=== PATIENT | male | born 1945 | race Caucasian/White ===

== ENCOUNTER 2016-03-27 10:31 | Inpatient (IN) | payer OTHER, MEDICARE ==
[2016-03-27] MEDS ORDERED: METHYLPREDNISOLONE INJ 125 MG/2 ML SDV IV ONE (11:07)
[2016-03-27] MEDS ORDERED: IPRATROPIUM/ALBUTEROL 0.5-2.5 MG/3 ML AMPUL NEB ONE (11:07)
[2016-03-27] MEDS ORDERED: FUROSEMIDE INJ/PF 40 MG/4 ML SDV IV ONE (11:07)
[2016-03-27 11:35] LABS: ABSOLUTE BASOPHILS # (AUTO) 0.1 10^3/uL (0.0-0.2); ABSOLUTE LYMPHOCYTES (AUTO) 0.8 10^3/uL (0.5-4.7); ABSOLUTE MONOCYTES (AUTO) 0.8 10^3/uL (0.1-1.4); ABSOLUTE NEUT (AUTO) 10.4 10^3/uL (1.7-8.2); BASOPHILS % (AUTO) 0.7 % (0-2); EOSINOPHILS % (AUTO) 0.4 % (0-6); HEMATOCRIT 38.6 % (37.9-51.0); HEMOGLOBIN 12.8 g/dL (13.5-17.0); HGB HCT DIFFERENCE -0.2; MEAN CORPUSCULAR HEMOGLOBIN 30.5 pg (27.0-33.4); MEAN CORPUSCULAR HGB CONC 33.1 g/dL (32.0-36.0); MEAN CORPUSCULAR VOLUME 92 fl (80-97); MONOCYTES % (AUTO) 6.4 % (3-13); RED CELL DISTRIBUTION WIDTH 14.7 % (11.5-14.0); SEGMENTED NEUTROPHILS % (AUTO) 85.5 % (42-78); WHITE BLOOD COUNT 12.1 10^3/uL (4.0-10.5)
[2016-03-27 11:40] LABS: PARTIAL THROMBOPLASTIN TIME 25.1 SEC (23.5-35.8); PROTHROMBIN TIME 12.7 SEC (11.4-15.4)
[2016-03-27 11:43] LABS: D-DIMER 1.13 ug/mL (0.00-0.50)
[2016-03-27] MEDS ORDERED: DILTIAZEM HCL INJ 25 MG/5 ML VIAL IV ONE (11:51)
[2016-03-27 12:09] LABS: ALANINE AMINOTRANSFERASE 59 U/L (21-72); ALBUMIN 3.8 g/dL (3.5-5.0); ALKALINE PHOSPHATASE 69 U/L (38-126); ANION GAP 15 (5-19); ASPARTATE AMINO TRANSFERASE 44 U/L (17-59); BILIRUBIN,TOTAL 1.6 mg/dL (0.2-1.3); BLOOD UREA NITROGEN 14 mg/dL (7-20); CALCIUM 9.7 mg/dL (8.4-10.2); CARBON DIOXIDE 23 mmol/L (22-30); CHLORIDE 100 mmol/L (98-107); CREATINE KINASE 92 U/L (55-170); CREATININE RESULT 1.15 mg/dL (0.52-1.25); GLUCOSE 191 mg/dL (75-110); SODIUM 137.9 mmol/L (137-145); TOTAL PROTEIN 6.6 g/dL (6.3-8.2)
[2016-03-27 12:19] LABS: CREATINE KINASE MB 2.14 ng/mL (<4.55)
[2016-03-27 12:23] LABS: FREE T3 3.41 pg/mL (2.77-5.27)
[2016-03-27 12:32] LABS: MAGNESIUM 1.1 mg/dL (1.6-2.3); TROPONIN I 0.143 ng/mL
[2016-03-27 12:37] LABS: THYROID STIMULATING HORMONE 0.78 uIU/mL (0.47-4.68)
[2016-03-27] MEDS ORDERED: NITROGLYCERIN 2% OINTMENT 1 GM PACKET TP ONE (12:38)
[2016-03-27] MEDS ORDERED: ASPIRIN 325 MG TABLET PO ONE (12:38)
[2016-03-27] MEDS ORDERED: MAGNESIUM SULFATE/D5W 100 ML IV SCH (12:45)
[2016-03-27] MEDS ORDERED: DILTIAZEM HCL/D5W 125 MG/125 ML RTUINJ IV ONE (12:52)
[2016-03-27] MEDS: DILTIAZEM HCL/D5W 125 ML IV PRN ×2 (13:00→23:56)
--- NOTE | 2016-03-27 13:00 | EKG REPORT ---
SEVERITY:- ABNORMAL ECG - A-FLUTTER W/ PREDOM 2:1 AV BLOCK, A-RATE 294 VENTRICULAR PREMATURE COMPLEX NONSPECIFIC T ABNORMALITIES, LATERAL LEADS BORDERLINE PROLONGED QT INTERVAL : Confirmed by: Layton Bird MD 27-Mar-2016 12:58:55
[2016-03-27 14:26] LABS: ARTERIAL BLOOD BASE EXCESS -3.4 mmol/L; ARTERIAL BLOOD O2 SATURATION 98.9 % (94-98)
--- NOTE | 2016-03-27 14:51 | ER Document Report ---
ED Respiratory Problem - General Chief Complaint: Breathing Difficulty Stated Complaint: DIFFICULTY BREATHING Notes: This is a 71-year-old male with history of sleep apnea who presents with concerns of shortness of breath worsening over the past week. He states he started with cold symptoms, congestion and a mild cough. He's had a decreased exertional tolerance over the past couple of days. No chest pain. He's been short of breath. He presents via EMS on BiPAP and was notably hypoxic upon medic arrival. - Related Data Home Medications: Current Home Medications Albuterol Sulfate [Proair Respiclick] 2 puff IH Q6HP PRN 03/27/16 [History] Aspirin [Aspirin 81 mg Chewable Tablet] 81 mg PO DAILY 03/27/16 [History] Budesonide/Formoterol Fumarate [Symbicort HFA 160-4.5 mcg Inhaler 6 gm] 2 puff IH Q12 03/27/16 [History] Cholecalciferol (Vitamin D3) [Vitamin D3 1000 Unit Tablet] 1,000 unit PO DAILY 03/27/16 [History] Cinnamon Bark [Cinnamon Bark 500 mg Capsule] 1,000 mg PO DAILY 03/27/16 [History ] Cyanocobalamin (Vitamin B-12) [Vitamin B-12 1000 mcg Tablet] 1,000 mcg PO DAILY 03/27/16 [History] Ferrous Sulfate 324 mg PO DAILY 03/27/16 [History] Gabapentin [Neurontin] 1 dose PO ASDIR PRN 03/27/16 [History] Lisinopril [Zestril] 40 mg PO DAILY 03/27/16 [History] Metformin HCl [Glucophage] 850 mg PO TID 03/27/16 [History] Kamrar-3 Fatty Acids/Fish Oil [Fish Oil 1,000 mg Capsule] 2,000 mg PO Q12 [History] Past Medical History - Social History Smoking Status: Former Smoker Frequency of alcohol use: Rare Drug Abuse: None Lives with: Spouse/Significant other - Has been to his current spouse for one year Family History: Reviewed & Not Pertinent Review of Systems - Review of Systems Constitutional: denies: Fever EENT: Nose congestion, Nose discharge Cardiovascular: denies: Chest pain, Palpitations, Syncope Respiratory: Short of breath Gastrointestinal: denies: Abdominal pain, Vomiting Musculoskeletal: Leg swelling Skin: denies: Rash Hematologic/Lymphatic: denies: Blood clots Neurological/Psychological: denies: Numbness, Tingling Physical Exam - Vital signs Vitals: Resp Pulse Ox 23 H 97 03/27/16 11:40 03/27/16 11:40 - General General appearance: Alert In distress: Mild - HEENT Head: Normocephalic Pupils: PERRL Nasal: Normal Mucous membranes: Normal Pharynx: Normal Neck: Normal - Respiratory Respiratory status: Respiratory distress, Tachypnea Breath sounds: Decreased air movement Chest palpation: Normal - Cardiovascular Rhythm: Irregularly irregular, Tachycardia - Abdominal Inspection: Obese Distension: Distended, Other - Ventral hernia - Back Back: Normal - Extremities General upper extremity: Normal inspection General lower extremity: Other - Trace pedal edema - Neurological Neuro grossly intact: Yes Orientation: AAOx4 Motor strength normal: LUE, RUE, LLE, RLE - Psychological Associated symptoms: Normal affect - Skin Skin Temperature: Warm Skin Moisture: Dry Skin Color: Normal Course - Re-evaluation Re-evalutation: 03/27/16 14:[address] Muñoz, Dr. Molina and Dr. Meraz for admission to [facility]. 03/27/16 17:32 Patient presented with new onset of A. fib/flutter not rate controlled with tachycardia to about 150. He had evidence of mild failure on exam with hypoxia and trace edema in the lower extremities. Chest x-ray consistent with mild CHF. BNP elevated to about 1800. Small troponin leak likely due to the tachycardia and strain. Patient was rate controlled with Cardizem. CTA was negative for pulmonary embolism as a source of his new A. fib/flutter. Thyroid studies are normal. Magnesium was notably very low and is being repleted. 03/27/16 17:34 Patient initially was on BiPAP but due to therapeutic interventions was able to be maintained safely on nasal cannula - Vital Signs Vital signs: Temp Pulse Resp BP Pulse Ox 23 H 97 03/27/16 11:40 03/27/16 11:40 - Laboratory Result Diagrams: 03/27/16 11:05 03/27/16 11:05 Laboratory results interpreted by me: 03/27/16 03/27/16 03/27/16 11:05 11:05 11:05 WBC 12.1 H RBC 4.20 L Hgb 12.8 L RDW 14.7 H Seg Neutrophils % 85.5 H Lymphocytes % 7.0 L Absolute Neutrophils 10.4 H D-Dimer 1.13 H ABG pO2 ABG Total CO2 ABG O2 Saturation Glucose 191 H Magnesium 1.1 L* Total Bilirubin 1.6 H NT-Pro-B Natriuret Pep 03/27/16 03/27/16 11:05 13:18 WBC RBC Hgb RDW Seg Neutrophils % Lymphocytes % Absolute Neutrophils D-Dimer ABG pO2 147.9 H ABG Total CO2 22.0 L ABG O2 Saturation 98.9 H Glucose Magnesium Total Bilirubin NT-Pro-B Natriuret Pep 1870 H - Diagnostic Test Radiology reviewed: Image reviewed, Reports reviewed - mild CHF - EKG Interpretation by Me Rate: Tachycardia Rhythm: A.Flutter - 150 Critical Care Note - Critical Care Note Total time excluding time spent on procedures (mins): 45 Discharge - Discharge Clinical Impression: Atrial fibrillation with rapid ventricular response Congestive heart failure (CHF) Qualifiers: Congestive heart failure type: unspecified congestive heart failure type Congestive heart failure chronicity: unspecified congestive heart failure chronicity Qualified Code(s): I50.9 - Heart failure, unspecified Condition: Stable Disposition: ADMITTED INPATIENT Admitting Provider: Hospitalist - busteed Unit Admitted: [facility]
[2016-03-27] MEDS ORDERED: ACETAMINOPHEN 325 MG TABLET PO PRN (15:23)
[2016-03-27] MEDS ORDERED: ONDANSETRON 4 MG TAB.RAPDIS PO PRN (15:23)
[2016-03-27] MEDS ORDERED: ONDANSETRON HCL INJ/PF 4 MG/2 ML SDV IV PRN (15:23)
[2016-03-27] MEDS ORDERED: ALBUTEROL SULFATE 0.083% NEB 2.5 MG/3 ML AMPUL NEB PRN (15:23)
[2016-03-27] MEDS ORDERED: DEXTROSE 40% GEL 15 GM TUBE PO PRN ×2 (15:29)
[2016-03-27] MEDS ORDERED: DEXTROSE 50%-WATER 25 GM/50 ML DISP.SYRIN IV PRN ×2 (15:29)
[2016-03-27] MEDS ORDERED: GLUCAGON,HUMAN RECOMB 1 MG INJ IM PRN (15:29)
--- NOTE | 2016-03-27 15:45 | PDOC H&P ---
History of Present Illness Admission Date/PCP: 03/27/16 15:20 Patient complains of: Shortness of breath for 2 days History of Present Illness: BILLIE SWEENEY is a 71 year old male with a history of COPD who 1 week ago developed a viral upper respiratory infection with a cough but nonproductive. The patient had taken Robitussin-DM with some improvement however 2 days ago developed acutely worsening shortness of breath. He began to get short of breath with minimal exertion and could walk about 20 feet before he had to stop and rest. The patient did not notice any palpitations or chest pain however when he presented to emergency room was found to be in a flutter with a rate of 150. The patient has been put on diltiazem drip and now has a normal heart rate. The patient denies any history of cardiac arrhythmias. He denies taking any decongestants or any other wiur-kfq-cnbomxf medications. He has normal thyroid functions. He does have obstructive sleep apnea but does wear his CPAP nightly. He has been actively trying to lose weight since the first of the year. He denies having any orthopnea or PND. Denies any lower extremity edema. He did have evidence for congestive heart failure when he presented but the time my exam he was much improved with a normal heart rate. Past Medical History Cardiac Medical History: Reports: Hypertension Pulmonary Medical History: Reports: Chronic Obstructive Pulmonary Disease (COPD) , Sleep Apnea EENT Medical History: Reports: None Neurological Medical History: Reports: Other - Restless leg syndrome Endocrine Medical History: Reports: Diabetes Mellitus Type 2 Renal/ Medical History: Reports: None Malignancy Medical History: Reports: Other - Prostate cancer GI Medical History: Reports: None Skin Medical History: Reports: None Psychiatric Medical History: Reports: Post Traumatic Stress Disorder Hematology: Reports: None Infectious Medical History: Reports: None Past Surgical History Past Surgical History: Reports: Other - Prostatectomy for prostate cancer. Status post penile implant. Social History Information Source: Patient Lives with: Spouse/Significant other Smoking Status: Former Smoker Frequency of Alcohol Use: Rare Hx Recreational Drug Use: No Drugs: None - Advance Directive Resuscitation Status: Full Code Family History Family History: Father in his 50s from coronary artery disease. Mother in her 70s from a stomach cancer. Parental Family History Reviewed: Yes Children Family History Reviewed: No Sibling(s) Family History Reviewed.: No Review of Systems Constitutional: PRESENT: weight loss - Intentional weight loss.. ABSENT: chills , fever(s), headache(s), weight gain Eyes: ABSENT: visual disturbances Ears: PRESENT: other - Chronic hearing loss Cardiovascular: PRESENT: dyspnea on exertion, orthropnea. ABSENT: chest pain, edema, palpitations Respiratory: PRESENT: cough, dyspnea. ABSENT: hemoptysis, sputum Gastrointestinal: ABSENT: abdominal pain, constipation, diarrhea, hematemesis, hematochezia, nausea, vomiting Genitourinary: ABSENT: dysuria, hematuria Musculoskeletal: ABSENT: joint swelling Integumentary: ABSENT: rash, wounds Neurological: ABSENT: abnormal gait, abnormal speech, confusion, dizziness, focal weakness, syncope Psychiatric: ABSENT: anxiety, depression, homidical ideation, suicidal ideation Endocrine: ABSENT: cold intolerance, heat intolerance, polydipsia, polyuria Hematologic/Lymphatic: ABSENT: easy bleeding, easy bruising Physical Exam Vital Signs: Temp Pulse Resp BP Pulse Ox 23 H 97 03/27/16 11:40 03/27/16 11:40 General appearance: PRESENT: no acute distress Head exam: PRESENT: atraumatic, normocephalic Eye exam: PRESENT: conjunctiva pink, EOMI, PERRLA. ABSENT: scleral icterus Ear exam: PRESENT: normal external ear exam Mouth exam: PRESENT: moist, tongue midline Neck exam: ABSENT: carotid bruit, JVD, lymphadenopathy, thyromegaly Respiratory exam: PRESENT: clear to auscultation vivek. ABSENT: rales, rhonchi, wheezes Cardiovascular exam: PRESENT: RRR. ABSENT: diastolic murmur, rubs, systolic murmur Pulses: PRESENT: normal dorsalis pedis pul Vascular exam: PRESENT: normal capillary refill GI/Abdominal exam: PRESENT: normal bowel sounds, soft. ABSENT: distended, guarding, mass, organolmegaly, rebound, tenderness Rectal exam: PRESENT: deferred Extremities exam: ABSENT: calf tenderness, clubbing, pedal edema Neurological exam: PRESENT: alert, awake, oriented to person, oriented to place , oriented to time, oriented to situation, CN II-XII grossly intact, other - Patient has a slight resting tremor.. ABSENT: motor sensory deficit Psychiatric exam: PRESENT: appropriate affect Skin exam: PRESENT: dry, intact, warm. ABSENT: cyanosis, rash Results Impressions: Chest X-Ray 03/27/16 10:53 IMPRESSION: 1. Mild cardiomegaly. 2. Minimal increased interstitial densities in the bases which may represent chronic interstitial change. Minimal interstitial edema cannot be excluded. Abdomen/Pelvis CTA 03/27/16 12:40 IMPRESSION: 1. 4.2 cm infrarenal abdominal aortic aneurysm. No evidence of rupture. 2. Fatty liver. 3. Colonic diverticulosis without evidence of diverticulitis. Chest/Abdomen CTA 03/27/16 12:40 IMPRESSION: 1. No evidence of pulmonary embolus or dissection. 2. Coronary artery calcifications most prominently involving the LAD. 3. Mild COPD, mild chronic appearing interstitial changes and mild dependent atelectasis or scarring. 4. Minimal effusions. Assessment & Plan - Diagnosis (1) Atrial flutter Is this a current diagnosis for this admission?: YesPlan: The patient has had new onset atrial flutter. The patient has been started on diltiazem and is rate controlled. Patient has had symptoms for 2 days and has a positive troponin. The positive troponins most likely secondary to the tachycardia. We will check serial cardiac enzymes. We will go ahead and anticoagulate with Lovenox. Patient denies taking any medications for his recent cold such as decongestants. He had normal thyroid functions drawn in the emergency room. He has never had any cardiac workup prior to this. Will consult cardiology in light of the positive troponin. (2) Troponin level elevated Is this a current diagnosis for this admission?: YesPlan: Most likely secondary to the tachycardia. Will treat with aspirin, Lovenox. Cardiology has been consulted. (3) Ventral hernia Is this a current diagnosis for this admission?: YesPlan: Asymptomatic (4) Hearing loss Is this a current diagnosis for this admission?: Yes (5) Hypertension Is this a current diagnosis for this admission?: YesPlan: Patient has been on lisinopril as an outpatient. We'll continue with diltiazem and lisinopril. (6) Prostate cancer Is this a current diagnosis for this admission?: YesPlan: Patient has a history of prostatectomy and is asymptomatic at this time. (7) COPD (chronic obstructive pulmonary disease) Is this a current diagnosis for this admission?: YesPlan: Patient shortness breath most likely was related to his atrial flutter. We'll give nebulizers as needed. (8) Posttraumatic stress disorder Is this a current diagnosis for this admission?: YesPlan: Continue with the Celexa. (9) Obstructive sleep apnea Is this a current diagnosis for this admission?: YesPlan: Continue with CPAP. (10) Diabetes mellitus Is this a current diagnosis for this admission?: YesPlan: We'll hold the metformin as an inpatient and cover with sliding scale insulin. (11) Congestive heart failure (CHF) Qualifiers: Congestive heart failure type: unspecified congestive heart failure type Congestive heart failure chronicity: unspecified congestive heart failure chronicity Qualified Code(s): I50.9 - Heart failure, unspecified Is this a current diagnosis for this admission?: YesPlan: Patient has no previous history of congestive heart failure. This most likely was related to his heart rate. At The time of my exam he had no rails as his heart rate has been controlled. - Time Time Spent: 50 to 70 Minutes - Inpatient Certification Medical Necessity: Risk of Complication if Not Cared For in Hospital - Plan Summary Plan Summary: We'll admit as a full admission as I anticipate this will require greater than 2 midnight hospital stay.
[2016-03-27 18:09] LABS: CREATINE KINASE MB 2.21 ng/mL (<4.55)
[2016-03-27 18:38] LABS: TROPONIN I 0.118 ng/mL
--- NOTE | 2016-03-27 20:55 | EKG REPORT ---
SEVERITY:- ABNORMAL ECG - A-FLUTTER FIB W/ PREDOM 3:1 AV BLOCK, A-RATE 294 NONSPECIFIC T ABNORMALITIES, LATERAL LEADS : Confirmed by: Layton Bird MD 27-Mar-2016 20:55:02
[2016-03-27] MEDS: ENOXAPARIN SODIUM INJ 120 MG/0.8 ML DISP.SYRIN SUBCUT SCH (23:01)
[2016-03-27] MEDS: INSULIN REG, HUMAN 100 UNIT/ML 3 ML VIAL (PYX) SUBCUT PRN (23:01)
[2016-03-27] MEDS: FAMOTIDINE 20 MG TABLET PO SCH (23:01)
[2016-03-28 00:14] LABS: CREATINE KINASE MB 2.18 ng/mL (<4.55); TROPONIN I 0.079 ng/mL
[2016-03-28 06:29] LABS: HEMATOCRIT 36.3 % (37.9-51.0); HEMOGLOBIN 11.5 g/dL (13.5-17.0); HGB HCT DIFFERENCE -1.8; MEAN CORPUSCULAR HEMOGLOBIN 29.4 pg (27.0-33.4); MEAN CORPUSCULAR HGB CONC 31.8 g/dL (32.0-36.0); MEAN CORPUSCULAR VOLUME 93 fl (80-97); RED BLOOD COUNT 3.92 10^6/uL (4.35-5.55); RED CELL DISTRIBUTION WIDTH 14.9 % (11.5-14.0)
[2016-03-28 06:43] LABS: ANION GAP 14 (5-19); BLOOD UREA NITROGEN 25 mg/dL (7-20); CALCIUM 9.7 mg/dL (8.4-10.2); CARBON DIOXIDE 21 mmol/L (22-30); CHLORIDE 102 mmol/L (98-107); CREATINE KINASE 102 U/L (55-170); CREATININE RESULT 1.29 mg/dL (0.52-1.25); GLUCOSE 195 mg/dL (75-110); MAGNESIUM 1.7 mg/dL (1.6-2.3)
[2016-03-28 06:53] LABS: CREATINE KINASE MB 2.08 ng/mL (<4.55); TROPONIN I 0.059 ng/mL
[2016-03-28] MEDS: INSULIN REG, HUMAN 100 UNIT/ML 3 ML VIAL (PYX) SUBCUT PRN ×2 (08:38→11:50)
[2016-03-28] MEDS: FAMOTIDINE 20 MG TABLET PO SCH (09:02)
[2016-03-28] MEDS: ENOXAPARIN SODIUM INJ 120 MG/0.8 ML DISP.SYRIN SUBCUT SCH (09:02)
[2016-03-28 09:16] LABS: APPEARANCE,URINE SLIGHTLY-CLOUDY; BILIRUBIN,URINE NEGATIVE (NEGATIVE); GLUCOSE, URINE 150 mg/dL (NEGATIVE); KETONES,URINE TRACE mg/dL (NEGATIVE); LEUKOCYTE ESTERASE,URINE SMALL (NEGATIVE); NITRITE,URINE NEGATIVE (NEGATIVE); PROTEIN,URINE 30 mg/dL (NEGATIVE); URINE SPECIFIC GRAVITY 1.054; UROBILINOGEN,URINE NEGATIVE mg/dL (<2.0)
[2016-03-28] MEDS ORDERED: DILTIAZEM HCL 240 MG CAPSULE.CR PO SCH (10:00)
--- NOTE | 2016-03-28 11:04 | EKG REPORT ---
SEVERITY:- ABNORMAL ECG - A-FLUTTER W/ PREDOM 4:1 AV BLOCK, A-RATE 283 NONSPECIFIC T ABNORMALITIES, ANT-LAT LEADS BORDERLINE PROLONGED QT INTERVAL CONSIDER OLD ANTEROSEPTAL OR : Confirmed by: Layton Bird MD 28-Mar-2016 11:02:56
[2016-03-28 12:28] VITALS: BP 109/71
--- NOTE | 2016-03-28 14:37 | PDOC DISCHARGE SUMMARY ---
General - Admit/Disc Date/PCP Admission Date/Primary Care Provider: 03/27/16 15:23 Discharge Date: 03/28/16 - Discharge Diagnosis (1) Atrial flutter Is this a current diagnosis for this admission?: YesSummary: Patient has had fibrillation and atrial flutter. Rate controlled with diltiazem. Sent home on Xarelto for anticoagulation (2) Troponin level elevated Is this a current diagnosis for this admission?: YesSummary: Secondary to atrial fibrillation and not secondary to acute coronary syndrome (3) Ventral hernia Is this a current diagnosis for this admission?: Yes (4) Hearing loss Is this a current diagnosis for this admission?: Yes (5) Hypertension Is this a current diagnosis for this admission?: Yes (6) Prostate cancer Is this a current diagnosis for this admission?: Yes (7) COPD (chronic obstructive pulmonary disease) Is this a current diagnosis for this admission?: Yes (8) Posttraumatic stress disorder Is this a current diagnosis for this admission?: Yes (9) Obstructive sleep apnea Is this a current diagnosis for this admission?: Yes (10) Diabetes mellitus Is this a current diagnosis for this admission?: Yes (11) Congestive heart failure (CHF) Is this a current diagnosis for this admission?: Yes - Additional Information Resuscitation Status: Full Code Discharge Diet: Diabetic Discharge Activity: Activity As Tolerated Home Medications: Albuterol Sulfate [Proair Respiclick] 2 puff IH Q6HP PRN 03/27/16 Aspirin [Aspirin 81 mg Chewable Tablet] 81 mg PO DAILY 03/27/16 Budesonide/Formoterol Fumarate [Symbicort HFA 160-4.5 mcg Inhaler 6 gm] 2 puff IH Q12 03/27/16 Cholecalciferol (Vitamin D3) [Vitamin D3 1000 Unit Tablet] 1,000 unit PO DAILY 03/27/16 Cinnamon Bark [Cinnamon Bark 500 mg Capsule] 1,000 mg PO DAILY 03/27/16 Cyanocobalamin (Vitamin B-12) [Vitamin B-12 1000 mcg Tablet] 1,000 mcg PO DAILY 03/27/16 Ferrous Sulfate 324 mg PO DAILY 03/27/16 Gabapentin [Neurontin] 1 dose PO ASDIR PRN 03/27/16 Lisinopril [Zestril] 40 mg PO DAILY 03/27/16 Metformin HCl [Glucophage] 850 mg PO TID 03/27/16 [place]-3 Fatty Acids/Fish Oil [Fish Oil 1,000 mg Capsule] 2,000 mg PO Q12 Diltiazem HCl [Cardizem Cd 240 mg Capsule.cr] 240 mg PO DAILY 30 Days 03/28/16 Rivaroxaban [Xarelto 10 mg Tablet] 20 mg PO WSUPPER #30 tablet 03/28/16 History of Present Illness History of Present Illness: BILLIE SWEENEY is a 71 year old male with a history of COPD who 1 week ago developed a viral upper respiratory infection with a cough but nonproductive. The patient had taken Robitussin-DM with some improvement however 2 days ago developed acutely worsening shortness of breath. He began to get short of breath with minimal exertion and could walk about 20 feet before he had to stop and rest. The patient did not notice any palpitations or chest pain however when he presented to emergency room was found to be in a flutter with a rate of 150. The patient has been put on diltiazem drip and now has a normal heart rate. The patient denies any history of cardiac arrhythmias. He denies taking any decongestants or any other hevt-ayq-qojeuhy medications. He has normal thyroid functions. He does have obstructive sleep apnea but does wear his CPAP nightly. He has been actively trying to lose weight since the first of the year. He denies having any orthopnea or PND. Denies any lower extremity edema. He did have evidence for congestive heart failure when he presented but the time my exam he was much improved with a normal heart rate. Hospital Course Hospital Course: 71-year-old male who presented with a 2 day history of shortness of breath and was found to be in atrial flutter/fibrillation. The patient was started on diltiazem IV with control his heart rate. The patient had quick resolution of his shortness of breath. He was noted have a troponin slightly positive when he presented and it was trended and trended down. It's felt that the elevated troponins were most likely secondary to his underlying atrial fibrillation and rapid ventricular rate. The patient was switched over to by mouth diltiazem and maintained rate control and also was started on Xarelto. The patient will follow-up with his primary care doctor in 1 week. Physical Exam Vital Signs: Temp Pulse Resp BP Pulse Ox 98.2 F 88 22 H 109/71 99 03/28/16 14:28 03/28/16 14:28 03/28/16 14:28 03/28/16 14:28 03/28/16 14:28 Intake & Output 03/27/16 03/28/16 03/29/16 06:59 06:59 06:59 Intake Total 520 511 Output Total 200 Balance 320 511 Weight 117.4 kg General appearance: PRESENT: no acute distress Eye exam: PRESENT: conjunctiva pink. ABSENT: scleral icterus Mouth exam: PRESENT: moist, tongue midline Neck exam: ABSENT: JVD Respiratory exam: PRESENT: clear to auscultation vivek. ABSENT: rales, rhonchi, wheezes Cardiovascular exam: PRESENT: RRR. ABSENT: diastolic murmur, rubs, systolic murmur GI/Abdominal exam: PRESENT: normal bowel sounds, soft. ABSENT: distended, guarding, mass, organolmegaly, rebound, tenderness Extremities exam: ABSENT: calf tenderness, clubbing, pedal edema Neurological exam: PRESENT: alert, awake, oriented to person, oriented to place , oriented to time, oriented to situation Skin exam: PRESENT: dry, intact, warm. ABSENT: cyanosis, rash Results Laboratory Results: 03/28/16 06:05 03/28/16 06:05 03/28/16 03/28/16 03/28/16 06:05 06:05 08:30 WBC 11.0 H RBC 3.92 L Hgb 11.5 L Hct 36.3 L MCV 93 MCH 29.4 MCHC 31.8 L RDW 14.9 H Plt Count 174 Sodium 137.0 Potassium 5.0 Chloride 102 Carbon Dioxide 21 L Anion Gap 14 BUN 25 H Creatinine 1.29 H Est GFR ( Amer) > 60 Est GFR (Non-Af Amer) 55 L Glucose 195 H Calcium 9.7 Magnesium 1.7 Urine Color YELLOW Urine Appearance SLIGHTLY-CLOUDY Urine pH 5.0 Ur Specific [place] 1.054 Urine Protein 30 H Urine Glucose (UA) 150 H Urine Ketones TRACE H Urine Blood NEGATIVE Urine Nitrite NEGATIVE Ur Leukocyte Esterase SMALL H Urine WBC (Auto) 10 Urine RBC (Auto) 1 03/27/16 03/27/16 03/27/16 17:15 17:15 23:25 Creatine Kinase 91 103 CK-MB (CK-2) 2.21 Troponin I 0.118 01/20/17 01/21/17 01/21/17 23:25 06:05 06:05 Creatine Kinase 102 CK-MB (CK-2) 2.18 2.08 Troponin I 0.079 0.059 Impressions: Chest X-Ray 03/27/16 10:53 IMPRESSION: 1. Mild cardiomegaly. 2. Minimal increased interstitial densities in the bases which may represent chronic interstitial change. Minimal interstitial edema cannot be excluded. Abdomen/Pelvis CTA 03/27/16 12:40 IMPRESSION: 1. 4.2 cm infrarenal abdominal aortic aneurysm. No evidence of rupture. 2. Fatty liver. 3. Colonic diverticulosis without evidence of diverticulitis. Chest/Abdomen CTA 03/27/16 12:40 IMPRESSION: 1. No evidence of pulmonary embolus or dissection. 2. Coronary artery calcifications most prominently involving the LAD. 3. Mild COPD, mild chronic appearing interstitial changes and mild dependent atelectasis or scarring. 4. Minimal effusions. Qualifiers PATEINT BEING DISCHARGED WITH ANY OF THE FOLLOWING DIAGNOSIS?: Heart Failure HF Pt being discharged on ACEI for LVEF less than 40%?: Yes HF Pt being discharged on ARBS for LVEF less than 40%?: No Reason(s) for not prescribing ARBS:: Drug intolerance HF Pt with Afib discharged with Warfarin?: Yes HF Pt discharged on evidence-based Beta Trina?: No Reason(s) for not prescribing evidence-based Beta Trina:: Procedure Contraindicated Plan Discharge Plan: Will follow up with primary care doctor in 1 week. Time Spent: Less than 30 Minutes
[2016-03-28] MEDS ORDERED: RIVAROXABAN 10 MG TABLET PO SCH (17:00)
== END 2016-03-28 14:50 | disposition home or self-care (01) | DRG 310 ==
LOC: ER 10:31 → EH 15:20 → UNDOADMIN 15:20 → EH 15:23 → 3W 19:13
PROVIDERS: ADMIT Internal Medicine; ATTEND Internal Medicine
DX: I48.92 Unspecified atrial flutter (principal); I48.91 Unspecified atrial fibrillation; K43.9 Ventral hernia without obstruction or gangrene; I50.9 Heart failure, unspecified; J44.9 Chronic obstructive pulmonary disease, unspecified; E11.9 Type 2 diabetes mellitus without complications; I10 Essential (primary) hypertension; R00.0 Tachycardia, unspecified; G47.33 Obstructive sleep apnea (adult) (pediatric); F43.10 Post-traumatic stress disorder, unspecified; H91.90 Unspecified hearing loss, unspecified ear; G25.81 Restless legs syndrome; Z87.891 Personal history of nicotine dependence; Z79.82 Long term (current) use of aspirin; Z79.84 Long term (current) use of oral hypoglycemic drugs; Z79.51 Long term (current) use of inhaled steroids; Z90.79 Acquired absence of other genital organ(s); Z85.46 Personal history of malignant neoplasm of prostate
CPT/HCPCS: 36415; 71010; 71275; 74174; 80048; 80053; 81001; 82550; 82553; 82803; 82962; 83735; 83880; 84439; 84443; 84481; 84484; 85025; 85027; 85379; 85610; 85730; 87040; 93005; 93010; 94660; J1650; J1815; J1940; J2930; J3475; J3490; J7620

== ENCOUNTER 2019-01-21 07:53 | Observation (INO) | payer MEDICARE, OTHER ==
[2019-01-21 09:15] LABS: ABSOLUTE BASOPHILS # (AUTO) 0.1 10^3/uL (0.0-0.2); ABSOLUTE LYMPHOCYTES (AUTO) 0.9 10^3/uL (0.5-4.7); BASOPHILS % (AUTO) 0.6 % (0-2); EOSINOPHILS % (AUTO) 0.1 % (0-6); HEMATOCRIT 33.8 % (37.9-51.0); HEMOGLOBIN 11.3 g/dL (13.5-17.0); LYMPHOCYTES % (AUTO) 8.1 % (13-45); MEAN CORPUSCULAR HEMOGLOBIN 29.4 pg (27.0-33.4); MEAN CORPUSCULAR HGB CONC 33.3 g/dL (32.0-36.0); MEAN CORPUSCULAR VOLUME 88 fl (80-97); MONOCYTES % (AUTO) 9.4 % (3-13); PLATELET COUNT 151 10^3/uL (150-450); RED BLOOD COUNT 3.84 10^6/uL (4.35-5.55); RED CELL DISTRIBUTION WIDTH 14.3 % (11.5-14.0); SEGMENTED NEUTROPHILS % (AUTO) 81.8 % (42-78); TOTAL CELLS COUNTED % (AUTO) 100 %
--- NOTE | 2019-01-21 09:21 | RADIOLOGY REPORT (SQ) ---
EXAM DESCRIPTION: CHEST SINGLE VIEW COMPLETED DATE/TIME: 01/21/2019 8:55 am REASON FOR STUDY: shortness of breath COMPARISON: CT chest 03/27/2016 EXAM PARAMETERS: NUMBER OF VIEWS: One view. TECHNIQUE: Single frontal radiographic view of the chest acquired. RADIATION DOSE: NA LIMITATIONS: None. FINDINGS: LUNGS AND PLEURA: No opacities, masses or pneumothorax. No pleural effusion. MEDIASTINUM AND HILAR STRUCTURES: No masses. Contour normal. HEART AND VASCULAR STRUCTURES: Borderline cardiomegaly BONES: No acute findings. HARDWARE: None in the chest. OTHER: No other significant finding. IMPRESSION: NO ACUTE RADIOGRAPHIC FINDING IN THE CHEST. TECHNICAL DOCUMENTATION: JOB ID: [id number] [employer]- All Rights Reserved Reading location - IP/workstation name: [email or web address]
[2019-01-21 09:26] LABS: VENOUS BLOOD BASE EXCESS -6.2 mmol/L; VENOUS BLOOD HCO3 18.9 mmol/L (20-32); VENOUS BLOOD PCO2 35.6 mmHg (35-63); VENOUS BLOOD PH 7.34 (7.30-7.42)
--- NOTE | 2019-01-21 09:28 | RADIOLOGY REPORT (SQ) ---
EXAM DESCRIPTION: CT HEAD WITHOUT COMPLETED DATE/TIME: 01/21/2019 9:13 am REASON FOR STUDY: fall on blood thinners COMPARISON: None. TECHNIQUE: Axial images acquired through the brain without intravenous contrast. Images reviewed wi th bone, brain and subdural windows. Additional sagittal and coronal reconstructions were generated. Images stored on PACS. All CT scanners at this facility use dose modulation, iterative reconstruction, and/or weight based d osing when appropriate to reduce radiation dose to as low as reasonably achievable (ALARA). [facility]: Dose Right [facility]: CareDose [facility]: Dose Right [facility]: Teradose 4D [facility]: Smart [employer] RADIATION DOSE: CT Rad equipment meets quality standard of care and radiation dose reduction techniq ues were employed. CTDIvol: 53.2 mGy. DLP: 1017 mGy-cm. mGy. LIMITATIONS: Minimal motion artifact FINDINGS: VENTRICLES: Normal size and contour. CEREBRUM: No masses. No hemorrhage. No midline shift. No evidence for acute infarction. Normal gra y/white matter differentiation. No areas of low density in the white matter. CEREBELLUM: No masses. No hemorrhage. No alteration of density. No evidence for acute infarction. EXTRAAXIAL SPACES: No fluid collections. No masses. ORBITS AND GLOBE: No intra- or extraconal masses. Post bilateral cataract surgery CALVARIUM: No fracture. PARANASAL SINUSES: No fluid or mucosal thickening. SOFT TISSUES: No mass or hematoma. OTHER: No other significant finding. IMPRESSION: No acute findings EVIDENCE OF ACUTE STROKE: NO. COMMENT: Quality ID # [id number]: Final reports with documentation of one or more dose reduction techniques (e.g., Automated exposure control, adjustment of the mA and/or kV according to patient size, use of iterative reconstruction technique) TECHNICAL DOCUMENTATION: JOB ID: [id number] [employer]- All Rights Reserved Reading location - IP/workstation name: [email or web address]
--- NOTE | 2019-01-21 09:32 | RADIOLOGY REPORT (SQ) ---
EXAM DESCRIPTION: CT CERVICAL SPINE WITHOUT COMPLETED DATE/TIME: 01/21/2019 9:13 am REASON FOR STUDY: fall on blood thinners COMPARISON: None. TECHNIQUE: Axial images acquired through the cervical spine without intravenous contrast. Images re viewed with lung, soft tissue and bone windows. Reconstructed coronal and sagittal MPR images review ed. Images stored on PACS. All CT scanners at this facility use dose modulation, iterative reconstruction, and/or weight based d osing when appropriate to reduce radiation dose to as low as reasonably achievable (ALARA). [facility]: Dose Right [facility]: CareDose [facility]: Dose Right [facility]: Teradose 4D [facility]: Smart [employer] RADIATION DOSE: CT Rad equipment meets quality standard of care and radiation dose reduction techniq ues were employed. CTDIvol: 24.4 mGy. DLP: 538 mGy-cm. mGy. LIMITATIONS: None. FINDINGS: ALIGNMENT: Anatomic. MINERALIZATION: Normal. VERTEBRAL BODIES: No fractures or dislocation. DISCS: Craniocervical junction, C1-2, C2-3 are unremarkable. At C3-4, mild bilateral foraminal narrowing from facet hypertrophy is present. No central stenosis. At C4-5, broad diffuse posterior disc bulging is present without central stenosis. Mild bilateral fo raminal narrowing from facet hypertrophy. At C5-6 and C6-7, mild posterior disc bulging is present with moderate bilateral foraminal narrowing. C7-T1 is unremarkable. FACETS, LATERAL MASSES, POSTERIOR ELEMENTS: No fractures. No dislocation. No acute findings. HARDWARE: None in the spine. VISUALIZED RIBS: No fractures. LUNG APICES AND SOFT TISSUES: No significant or acute findings. OTHER: No other significant finding. IMPRESSION: No acute findings TECHNICAL DOCUMENTATION: JOB ID: [id number] Quality ID # [id number]: Final reports with documentation of one or more dose reduction techniques (e.g., Au tomated exposure control, adjustment of the mA and/or kV according to patient size, use of iterative reconstruction technique) 2010 [employer]- All Rights Reserved Reading location - IP/workstation name: [email or web address]
[2019-01-21 09:36] LABS: ALKALINE PHOSPHATASE 70 U/L (38-126); ANION GAP 11 (5-19); ASPARTATE AMINO TRANSFERASE 20 U/L (17-59); BILIRUBIN,DIRECT 0.2 mg/dL (0.0-0.4); BLOOD UREA NITROGEN 37 mg/dL (7-20); CALCIUM 9.3 mg/dL (8.4-10.2); CARBON DIOXIDE 19 mmol/L (22-30); CHLORIDE 103 mmol/L (98-107); CREATINE KINASE 156 U/L (55-170); GLUCOSE 154 mg/dL (75-110); POTASSIUM 5.5 mmol/L (3.6-5.0); TOTAL PROTEIN 7.1 g/dL (6.3-8.2)
[2019-01-21 09:39] LABS: INTERNATIONAL RATION (INR) 1.63; PARTIAL THROMBOPLASTIN TIME 34.3 SEC (23.5-35.8); PROTHROMBIN TIME 19.5 SEC (11.4-15.4)
[2019-01-21 09:46] LABS: CREATINE KINASE MB 1.16 ng/mL (<4.55); TROPONIN I 0.015 ng/mL
--- NOTE | 2019-01-21 09:47 | ER Document Report ---
ED General - General Chief Complaint: Weakness Stated Complaint: WEAKNESS Time Seen by Provider: 01/21/19 09:01 Primary Care Provider: XENIA,KATERYNA [Primary Care Provider] - Follow up as needed Notes: 73-year-old male presents with complaints of generalized weakness, increased dyspnea, decreased appetite since yesterday. Reports that patient has been having increased falls due to feeling "unsteady on his feet" since yesterday. Patient hit his head against the wall yesterday. Usually wears O2 on exertion however since yesterday has been wearing it consistently due to increased shortness of breath. Patient has a history of 5 stents and is on Eliquis/Plavix. Pt also wears CPAP at night. reports "fever of 99.2F." Patient denies chest pain, increased coughing, nausea/vomiting, abdominal pain. TRAVEL OUTSIDE OF THE [place] IN LAST 30 DAYS: No - Related Data Allergies/Adverse Reactions: No Known Allergies Allergy (Verified 01/21/19 08:04) Home Medications: eliquis. plavix Past Medical History - Social History Smoking Status: Former Smoker Chew tobacco use (# tins/day): No Frequency of alcohol use: None Drug Abuse: None Family History: Reviewed & Not Pertinent Patient has suicidal ideation: No Patient has homicidal ideation: No - Past Medical History Cardiac Medical History: Reports: Hx Hypertension Pulmonary Medical History: Reports: Hx COPD, Hx Sleep Apnea Endocrine Medical History: Reports: Hx Diabetes Mellitus Type 2 Psychiatric Medical History: Reports: Hx Post Traumatic Stress Disorder Past Surgical History: Reports: Other - Prostatectomy for prostate cancer. Status post penile implant. Review of Systems - Review of Systems Notes: Constitutional: Negative for fever. HENT: Negative for sore throat. Eyes: Negative for visual changes. Cardiovascular: Negative for chest pain. Respiratory: Positive for shortness of breath. Gastrointestinal: Negative for abdominal pain, vomiting or diarrhea. Genitourinary: Negative for dysuria. Musculoskeletal: Negative for back pain. Skin: Negative for rash. Neurological: Positive for generalized weakness and increased falls. Negative for headaches or numbness. 10 point ROS negative except as marked above and in HPI. Physical Exam - Vital signs Vitals: Temp Pulse Resp BP Pulse Ox 99.1 F 80 36 H 143/60 H 100 01/21/19 07:55 01/21/19 07:55 01/21/19 07:55 01/21/19 07:55 01/21/19 07:55 - Notes Notes: GENERAL: Well-appearing, well-nourished and in no acute distress. HEAD: Atraumatic, normocephalic. EYES: Extraocular movements intact, sclera anicteric, conjunctiva are normal. NECK: Normal range of motion, supple without lymphadenopathy or JVD. LUNGS: Breath sounds clear to auscultation bilaterally and equal. No wheezes rales or rhonchi. HEART: Regular rate and rhythm without murmurs, rubs or gallops. ABDOMEN: Soft, nontender, normoactive bowel sounds. No guarding, no rebound. No masses appreciated. EXTREMITIES: Normal range of motion, no pitting or edema. No clubbing or cyanosis. NEUROLOGICAL: Cranial nerves II through XII grossly intact. Normal speech. PSYCH: Normal mood, normal affect. SKIN: Warm, Dry, normal turgor, no rashes or lesions noted. Course - Re-evaluation Re-evalutation: 01/21/19 73 y/o male presents for generalized weakness, dyspnea, and increased falls since yesterday. Pt did hit head and is on anti-coagulation. CT head/c spine negative. CXR negative. Labwork shows mildly elevated potassium and mild acute on chronic kidney injury. EKG unremarkable. Pt was ambulated with pulse ox and went approximately 5 feet and became very labored. 01/21/19 11:[address] Tyler who states he will see pt and then decide what type of bed. - Vital Signs Vital signs: Temp Pulse Resp BP Pulse Ox 99.1 F 80 36 H 143/60 H 100 01/21/19 07:55 01/21/19 07:55 01/21/19 07:55 01/21/19 07:55 01/21/19 07:55 - Laboratory Result Diagrams: 01/21/19 09:05 01/21/19 09:05 Laboratory results interpreted by me: 01/21/19 01/21/19 01/21/19 09:05 09:05 09:05 WBC 11.0 H RBC 3.84 L Hgb 11.3 L Hct 33.8 L RDW 14.3 H Lymph % (Auto) 8.1 L Absolute Neuts (auto) 9.0 H Seg Neutrophils % 81.8 H PT 19.5 H VBG HCO3 Sodium 132.6 L Potassium 5.5 H Carbon Dioxide 19 L BUN 37 H Creatinine 2.50 H Est GFR ( Amer) 31 L Est GFR (MDRD) Non-Af 25 L Glucose 154 H Urine Blood Ur Leukocyte Esterase 01/21/19 01/21/19 09:12 09:48 WBC RBC Hgb Hct RDW Lymph % (Auto) Absolute Neuts (auto) Seg Neutrophils % PT VBG HCO3 18.9 L Sodium Potassium Carbon Dioxide BUN Creatinine Est GFR ( Amer) Est GFR (MDRD) Non-Af Glucose Urine Blood LARGE H Ur Leukocyte Esterase LARGE H Discharge - Discharge Clinical Impression: COPD exacerbation, Generalized weakness Condition: Stable Disposition: ADMITTED OBSERVATION Admitting Provider: [facility] Admitted: Medical Floor [facility] [[facility] - Follow up as needed
[2019-01-21 10:17] LABS: APPEARANCE,URINE CLOUDY; BILIRUBIN,URINE NEGATIVE (NEGATIVE); COLOR,URINE YELLOW; GLUCOSE, URINE NEGATIVE (NEGATIVE); KETONES,URINE NEGATIVE (NEGATIVE); LEUKOCYTE ESTERASE,URINE LARGE (NEGATIVE); NITRITE,URINE NEGATIVE (NEGATIVE); PROTEIN,URINE NEGATIVE (NEGATIVE); URINE SPECIFIC GRAVITY 1.015; UROBILINOGEN,URINE NEGATIVE mg/dL (<2.0)
[2019-01-21] MEDS ORDERED: CEFTRIAXONE INJ 1000 MG VIAL IV ONE (10:57)
[2019-01-21] MEDS ORDERED: IPRATROPIUM/ALBUTEROL 0.5-2.5 MG/3 ML AMPUL NEB ONE (11:13)
--- NOTE | 2019-01-21 11:47 | EKG REPORT ---
SEVERITY:- NORMAL ECG - SINUS RHYTHM : Confirmed by: Natasha Nix MD 21-Jan-2019 11:46:41
[2019-01-21] MEDS ORDERED: NORMAL SALINE 1000 ML 1,000 ML IV ONE (12:34)
[2019-01-21] MEDS ORDERED: NORMAL SALINE 1000 ML 1,000 ML IV PRN (12:34)
[2019-01-21] MEDS ORDERED: DEXTROSE 40% GEL 15 GM TUBE PO PRN ×2 (12:58)
[2019-01-21] MEDS ORDERED: GLUCAGON,HUMAN RECOMB 1 MG INJ IM PRN (12:58)
[2019-01-21] MEDS ORDERED: DEXTROSE 50%-WATER 25 GM/50 ML DISP.SYRIN IV PRN ×2 (12:58)
[2019-01-21] MEDS ORDERED: METHYLPREDNISOLONE INJ 40 MG/1 ML SDV IV ONE ×2 (13:00→16:00)
--- NOTE | 2019-01-21 13:06 | PDOC H&P ---
History of Present Illness Admission Date/PCP: [facility] Patient complains of: Fall, shortness of breath History of Present Illness: BILLIE SWEENEY is a 73 year old male with history of COPD [sometimes uses home oxygen on exertion], CAD status post stents [04/2017], chronic tremors, atrial fibrillation, who presented to the hospital with his for evaluation of shortness of breath and fall. Patient has been experiencing increased sputum production on cough since yesterday accompanied by mild increase from baseline shortness of breath. Today when ambulating, noted that he had to hold on to the wall occasionally. Patient admits to some disequilibrium but denies any lightheadedness, vertigo or presyncopal state. Patient has also noted that he has been getting progressively weaker in the legs. Denies any focal weaknesses or paresthesias, dysarthria, dysphagia, weakness in upper extremities, nausea or vomiting, or chest pain. Also denies any increased weight gain or swelling in the extremities. 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 States his legs felt weak and that is why he tipped over. Past Medical History Cardiac Medical History: Reports: Atrial Fibrillation, Coronary Artery Disease, Hypertension Pulmonary Medical History: Reports: Chronic Obstructive Pulmonary Disease (COPD), Sleep Apnea Endocrine Medical History: Reports: Diabetes Mellitus Type 2 Psychiatric Medical History: Reports: Post Traumatic Stress Disorder Past Surgical History Past Surgical History: Reports: Other - Prostatectomy for prostate cancer. Status post penile implant. Social History Smoking Status: Former Smoker Electronic Cigarette use?: No Frequency of Alcohol Use: None Hx Recreational Drug Use: No Drugs: None Hx Prescription Drug Abuse: No - Advance Directive Resuscitation Status: Full Code Family History Family History: Reviewed & Not Pertinent Parental Family History Reviewed: Yes Children Family History Reviewed: NA Sibling(s) Family History Reviewed.: NA Medication/Allergy Home Medications: Albuterol Sulfate [Proair Respiclick] 2 puff IH Q6HP PRN 03/27/16 Aspirin [Aspirin 81 mg Chewable Tablet] 81 mg PO DAILY 03/27/16 Budesonide/Formoterol Fumarate [Symbicort HFA 160-4.5 mcg Inhaler 6 gm] 2 puff IH Q12 03/27/16 Cholecalciferol (Vitamin D3) [Vitamin D3 1000 Unit Tablet] 1,000 unit PO DAILY 03/27/16 Cinnamon Bark [Cinnamon Bark 500 mg Capsule] 1,000 mg PO DAILY 03/27/16 Cyanocobalamin (Vitamin B-12) [Vitamin B-12 1000 mcg Tablet] 1,000 mcg PO DAILY 03/27/16 Ferrous Sulfate 324 mg PO DAILY 03/27/16 Gabapentin [Neurontin] 1 dose PO ASDIR PRN 03/27/16 Lisinopril [Zestril] 40 mg PO DAILY 03/27/16 Metformin HCl [Glucophage] 850 mg PO TID 03/27/16 [place]-3 Fatty Acids/Fish Oil [Fish Oil 1,000 mg Capsule] 2,000 mg PO Q12 03/27/16 Diltiazem HCl [Cardizem Cd 240 mg Capsule.cr] 240 mg PO DAILY 30 Days ca psule.cr 03/28/16 Rivaroxaban [Xarelto 10 mg Tablet] 20 mg PO WSUPPER #30 tablet 03/28/16 Allergies/Adverse Reactions: No Known Allergies Allergy (Verified 01/21/19 08:04) Review of Systems Constitutional: ABSENT: fever(s) Eyes: ABSENT: visual disturbances Ears: PRESENT: hearing changes - Chronic hearing impairment. No acute change Nose, Mouth, and Throat: ABSENT: headache(s), vertigo Cardiovascular: PRESENT: dyspnea on exertion. ABSENT: chest pain, edema Gastrointestinal: ABSENT: abdominal pain Genitourinary: ABSENT: difficulty urinating, dysuria, nocturia Neurological: ABSENT: focal weakness, syncope Psychiatric: ABSENT: anxiety Endocrine: ABSENT: polyuria Hematologic/Lymphatic: ABSENT: easy bleeding Allergic/Immunologic: ABSENT: seasonal rhinorrhea Physical Exam Vital Signs: Temp Pulse Resp BP Pulse Ox 99.1 F 80 36 H 143/60 H 100 01/21/19 07:55 01/21/19 07:55 01/21/19 07:55 01/21/19 07:55 01/21/19 07:55 Intake & Output 01/20/19 01/21/19 01/22/19 06:59 06:59 06:59 Weight 126.1 kg General appearance: PRESENT: no acute distress, cooperative, other - Tremulous Head exam: PRESENT: normocephalic Eye exam: PRESENT: EOMI. ABSENT: nystagmus Neck exam: ABSENT: JVD, tracheal deviation Respiratory exam: PRESENT: clear to auscultation vivek, symmetrical, tachypnea - Mildly, unlabored. ABSENT: decreased breath sounds, wheezes Cardiovascular exam: PRESENT: RRR, +S1, +S2. ABSENT: tachycardia GI/Abdominal exam: PRESENT: normal bowel sounds, soft. ABSENT: guarding, rebound, rigid, tenderness Neurological exam: PRESENT: alert, awake, oriented to person, oriented to place, oriented to time, oriented to situation, CN II-XII grossly intact, motor sensory deficit, other - Normal [id number] test in bilateral upper extremity Results Laboratory Results: 01/21/19 09:05 01/21/19 09:05 01/21/19 01/21/19 01/21/19 09:05 09:05 09:12 WBC 11.0 H RBC 3.84 L Hgb 11.3 L Hct 33.8 L MCV 88 MCH 29.4 MCHC 33.3 RDW 14.3 H Plt Count 151 Seg Neutrophils % 81.8 H VBG pH 7.34 VBG pCO2 35.6 VBG HCO3 18.9 L VBG Base Excess -6.2 Sodium 132.6 L Potassium 5.5 H Chloride 103 Carbon Dioxide 19 L Anion Gap 11 BUN 37 H Creatinine 2.50 H Est GFR ( Amer) 31 L Glucose 154 H Lactic Acid Calcium 9.3 Total Bilirubin 1.0 AST 20 Alkaline Phosphatase 70 Total Protein 7.1 Albumin 4.0 Urine Color Urine Appearance Urine pH Ur Specific [place] Urine Protein Urine Glucose (UA) Urine Ketones Urine Blood Urine Nitrite Ur Leukocyte Esterase Urine WBC (Auto) Urine RBC (Auto) 01/21/19 01/21/19 09:48 11:02 WBC RBC Hgb Hct MCV MCH MCHC RDW Plt Count Seg Neutrophils % VBG pH VBG pCO2 VBG HCO3 VBG Base Excess Sodium Potassium Chloride Carbon Dioxide Anion Gap BUN Creatinine Est GFR ( Amer) Glucose Lactic Acid 1.2 Calcium Total Bilirubin AST Alkaline Phosphatase Total Protein Albumin Urine Color YELLOW Urine Appearance CLOUDY Urine pH 5.0 Ur Specific [place] 1.015 Urine Protein NEGATIVE Urine Glucose (UA) NEGATIVE Urine Ketones NEGATIVE Urine Blood LARGE H Urine Nitrite NEGATIVE Ur Leukocyte Esterase LARGE H Urine WBC (Auto) 91 Urine RBC (Auto) 46 01/21/19 01/21/19 09:05 09:05 Creatine Kinase 156 CK-MB (CK-2) 1.16 Troponin I 0.015 Impressions: Cervical Spine CT 01/21/19 00:00 IMPRESSION: No acute findings Chest X-Ray 01/21/19 00:00 IMPRESSION: NO ACUTE RADIOGRAPHIC FINDING IN THE CHEST. Head CT 01/21/19 00:00 IMPRESSION: No acute findings EVIDENCE OF ACUTE STROKE: NO. Assessment and Plan - Diagnosis (1) Dyspnea Qualifiers: Dyspnea type: dyspnea on exertion Qualified Code(s): R06.09 - Other forms of dyspnea Is this a current diagnosis for this admission?: Yes Plan: Patient currently has clear breath sounds. However I auscultated his lungs a while after breathing treatment. At this time, I will opt to treat mild COPD exacerbation with standing nebs and only 1 dose of steroids. I do not think you need any more steroids given severity of his COPD exacerbation. I will also keep CAD as a differential though he is chest pain-free. Will trend troponins. EKG showing no ischemic changes. (2) Diabetes mellitus type 2 in obese Is this a current diagnosis for this admission?: Yes Plan: Continue home regimen of NovoLog and Lantus. Sliding scale, diabetic diet, Accu-Cheks (3) ERROL (acute kidney injury) Is this a current diagnosis for this admission?: Yes Plan: Baseline of 1.1 in 2017. Currently 2.5 I will check a response to IV fluids (4) COPD exacerbation Is this a current diagnosis for this admission?: Yes Plan: LABA/LAMA/ICS Rest of plan under problem #1 (5) Generalized weakness Is this a current diagnosis for this admission?: Yes Plan: Physical therapy/Occupational therapy (6) Obstructive sleep apnea Is this a current diagnosis for this admission?: Yes Plan: Nocturnal CPAP (7) Troponin level elevated Is this a current diagnosis for this admission?: Yes Plan: Trend out troponins. No EKG changes. (8) Asymptomatic bacteriuria Is this a current diagnosis for this admission?: Yes Plan: Denies urinary symptoms currently. Will not continue antibiotics. - Time Time Spent with patient: 35 or more minutes
[2019-01-21] MEDS: LEVALBUTEROL HCL NEB 1.25 MG/3 ML AMPUL NEB SCH ×2 (13:29→20:17)
[2019-01-21] MEDS: CLOPIDOGREL BISULFATE 75 MG TABLET PO SCH (15:17)
--- NOTE | 2019-01-21 15:30 | ADVANCED CARE ---
- Diagnosis (1) Dyspnea Diagnosis Current: Yes (3) ERROL (acute kidney injury) Diagnosis Current: Yes (4) COPD exacerbation Diagnosis Current: Yes Attendance: Patient, patient's and myself Resuscitation Status: Full Code Discussion: I discussed patient's medical conditions and management of COPD. Also discussed the usage of his home oxygen. During our conversation I discussed the potential direction COPD exacerbation could take and while he is currently just a mild exacerbation, there is still the potential with becoming more severe requiring advanced therapy with intubation or NIPPV. We discussed laid down plans regarding what to do if he should which this point. Patient and are agreeable to NIPPV or intubation if needed. Full treatment. I asked also if they have any advanced directive filled out and he said no but will consider. Care Planning Goals: Full code. NIPPV if needed. Full treatment. Document(s) Completed: None Time Spent: 16-20 mins
[2019-01-21] MEDS: INSULIN LISPRO 100 UNIT/ML 3 ML VIAL SUBCUT SCH ×3 (17:48→22:05)
[2019-01-21] MEDS ORDERED: INSULIN GLARGINE,HUM.REC.ANLOG 1,000 UNIT/10 ML VIAL (PYX) SUBCUT ONE (21:48)
[2019-01-21] MEDS: ATORVASTATIN CALCIUM 20 MG TABLET PO SCH (21:53)
[2019-01-21] MEDS: GABAPENTIN 300 MG CAPSULE PO SCH (21:53)
[2019-01-21] MEDS: APIXABAN 5 MG TABLET PO SCH (21:53)
[2019-01-21] MEDS: CITALOPRAM HYDROBROMIDE 20 MG TABLET PO SCH (21:53)
[2019-01-21] MEDS: INSULIN GLARGINE,HUM.REC.ANLOG 1,000 UNIT/10 ML VIAL SUBCUT SCH (22:02)
[2019-01-22 06:02] LABS: HEMATOCRIT 30.8 % (37.9-51.0); HEMOGLOBIN 10.4 g/dL (13.5-17.0); MEAN CORPUSCULAR HEMOGLOBIN 29.5 pg (27.0-33.4); MEAN CORPUSCULAR HGB CONC 33.6 g/dL (32.0-36.0); MEAN CORPUSCULAR VOLUME 88 fl (80-97); PLATELET COUNT 131 10^3/uL (150-450); RED BLOOD COUNT 3.51 10^6/uL (4.35-5.55); RED CELL DISTRIBUTION WIDTH 14.1 % (11.5-14.0); WHITE BLOOD COUNT 7.2 10^3/uL (4.0-10.5)
[2019-01-22 06:21] LABS: ANION GAP 15 (5-19); BLOOD UREA NITROGEN 44 mg/dL (7-20); CALCIUM 8.5 mg/dL (8.4-10.2); CARBON DIOXIDE 14 mmol/L (22-30); CHLORIDE 105 mmol/L (98-107); GLUCOSE 189 mg/dL (75-110); POTASSIUM 5.1 mmol/L (3.6-5.0)
[2019-01-22] MEDS: LEVALBUTEROL HCL NEB 1.25 MG/3 ML AMPUL NEB SCH ×3 (08:18→19:32)
[2019-01-22] MEDS: INSULIN LISPRO 100 UNIT/ML 3 ML VIAL SUBCUT SCH ×6 (08:53→21:37)
[2019-01-22] MEDS ORDERED: METOPROLOL SUCCINATE 50 MG TAB.SR.24H PO SCH (10:00)
[2019-01-22] MEDS: FLUTICASONE/UMECLIDIN/VILANTER 100-62.5-25 MCG/DOSE IH SCH (10:30)
[2019-01-22] MEDS: CLOPIDOGREL BISULFATE 75 MG TABLET PO SCH (10:31)
[2019-01-22] MEDS: FERROUS SULFATE 325 MG TABLET PO SCH (10:31)
[2019-01-22] MEDS: APIXABAN 5 MG TABLET PO SCH ×2 (10:31→21:31)
[2019-01-22] MEDS: METOPROLOL SUCCINATE 25 MG TAB.SR.24H PO SCH (10:31)
[2019-01-22] MEDS: FLUTICASONE NASAL SPRAY 50 MCG/SPRY 120 SPRAY/16 GM NAREB SCH (10:31)
[2019-01-22] MEDS: CHOLECALCIFEROL (D3) 1,000 UNIT (25 MCG) TABLET PO SCH (10:32)
[2019-01-22] MEDS: CYANOCOBALAMIN (VITAMIN B-12) 1,000 MCG TABLET PO SCH (10:32)
[2019-01-22] MEDS: HYDROCHLOROTHIAZIDE 25 MG TABLET PO SCH (10:32)
--- NOTE | 2019-01-22 15:49 | PDOC PROGRESS REPORT ---
Subjective Progress Note for:: 01/22/19 Subjective:: No adverse events overnight. No new complaints. He says overall he is feeling better. His breathing feels comfortable. He did a lot better with physical therapy today than I thought he was going to, walking 170 feet with a walker. Reason For Visit: ERROL,DYSPNEA Physical Exam Vital Signs: Temp Pulse Resp BP Pulse Ox 98.1 F 68 16 122/58 L 96 01/22/19 12:00 01/22/19 14:00 01/22/19 14:00 01/22/19 12:00 01/22/19 14:00 Intake & Output 01/21/19 01/22/19 01/23/19 06:59 06:59 06:59 Intake Total 2740 Output Total 1075 Balance 1665 Weight 126 kg General appearance: PRESENT: no acute distress, cooperative, disheveled, morbidly obese Respiratory exam: PRESENT: clear to auscultation vivek, symmetrical, unlabored. ABSENT: accessory muscle use, chest wall tenderness, crackles, prolonged expiratory phas, rhonchi, tachypnea, wheezes Cardiovascular exam: PRESENT: irregular rhythm Pulses: PRESENT: normal carotid pulses Vascular exam: PRESENT: normal capillary refill GI/Abdominal exam: PRESENT: normal bowel sounds, soft. ABSENT: distended, guarding, rebound, tenderness Extremities exam: ABSENT: clubbing, pedal edema Musculoskeletal exam: PRESENT: deformity, normal inspection Neurological exam: PRESENT: alert, awake, oriented to person, oriented to place, oriented to situation, other - Tremulous Psychiatric exam: PRESENT: appropriate affect, normal mood Skin exam: PRESENT: dry, warm Results Laboratory Results: 01/22/19 05:25 01/22/19 05:25 01/22/19 01/22/19 05:25 05:25 WBC 7.2 RBC 3.51 L Hgb 10.4 L Hct 30.8 L MCV 88 MCH 29.5 MCHC 33.6 RDW 14.1 H Plt Count 131 L Sodium 134.3 L Potassium 5.1 H Chloride 105 Carbon Dioxide 14 L Anion Gap 15 BUN 44 H Creatinine 2.32 H Est GFR ( Amer) 33 L Glucose 189 H Calcium 8.5 01/21/19 01/21/19 01/21/19 09:05 09:05 16:24 Creatine Kinase 156 CK-MB (CK-2) 1.16 Troponin I 0.015 0.013 Impressions: Cervical Spine CT 01/21/19 00:00 IMPRESSION: No acute findings Chest X-Ray 01/21/19 00:00 IMPRESSION: NO ACUTE RADIOGRAPHIC FINDING IN THE CHEST. Head CT 01/21/19 00:00 IMPRESSION: No acute findings EVIDENCE OF ACUTE STROKE: NO. Assessment and Plan - Diagnosis (1) Dyspnea Qualifiers: Dyspnea type: dyspnea on exertion Qualified Code(s): R06.09 - Other forms of dyspnea Is this a current diagnosis for this admission?: Yes Plan: Suspected to be due to his baseline level of weakness, his COPD, his general poor health, and his renal failure. His breathing feels better at rest. He was able to ambulate with a walker and standby assist for 170 feet today, which is better than I thought he was going to do. (2) ERROL (acute kidney injury) Is this a current diagnosis for this admission?: Yes Plan: Not sure what his baseline is, had a normal creatinine in 2017, so we are assuming that this is acute. He did have some response to IV fluids and so we will try to cautiously hydrate him and monitor the trend in his creatinine. (3) Diabetes mellitus type 2 in obese Is this a current diagnosis for this admission?: Yes Plan: Continue home regimen of NovoLog and Lantus. Sliding scale, diabetic diet, Accu-Cheks (4) Generalized weakness Is this a current diagnosis for this admission?: Yes Plan: Physical therapy felt he was safe to go home with home health. - Time Time Spent with patient: 15-24 minutes
[2019-01-22] MEDS: CITALOPRAM HYDROBROMIDE 20 MG TABLET PO SCH (21:30)
[2019-01-22] MEDS: ATORVASTATIN CALCIUM 20 MG TABLET PO SCH (21:31)
[2019-01-22] MEDS: GABAPENTIN 300 MG CAPSULE PO SCH (21:31)
[2019-01-22] MEDS: INSULIN GLARGINE,HUM.REC.ANLOG 1,000 UNIT/10 ML VIAL SUBCUT SCH (21:54)
[2019-01-23] MEDS: LEVALBUTEROL HCL NEB 1.25 MG/3 ML AMPUL NEB SCH ×3 (07:53→20:30)
[2019-01-23] MEDS: INSULIN LISPRO 100 UNIT/ML 3 ML VIAL SUBCUT SCH ×6 (08:57→21:36)
[2019-01-23] MEDS: FLUTICASONE/UMECLIDIN/VILANTER 100-62.5-25 MCG/DOSE IH SCH (10:43)
[2019-01-23] MEDS: FERROUS SULFATE 325 MG TABLET PO SCH (10:43)
[2019-01-23] MEDS: METOPROLOL SUCCINATE 25 MG TAB.SR.24H PO SCH (10:43)
[2019-01-23] MEDS: HYDROCHLOROTHIAZIDE 25 MG TABLET PO SCH (10:43)
[2019-01-23] MEDS: CYANOCOBALAMIN (VITAMIN B-12) 1,000 MCG TABLET PO SCH (10:43)
[2019-01-23] MEDS: FLUTICASONE NASAL SPRAY 50 MCG/SPRY 120 SPRAY/16 GM NAREB SCH (10:43)
[2019-01-23] MEDS: APIXABAN 5 MG TABLET PO SCH ×2 (10:44→21:32)
[2019-01-23] MEDS: CLOPIDOGREL BISULFATE 75 MG TABLET PO SCH (10:44)
[2019-01-23] MEDS: CHOLECALCIFEROL (D3) 1,000 UNIT (25 MCG) TABLET PO SCH (10:44)
[2019-01-23 10:58] LABS: ANION GAP 11 (5-19); BLOOD UREA NITROGEN 50 mg/dL (7-20); CALCIUM 9.3 mg/dL (8.4-10.2); CARBON DIOXIDE 22 mmol/L (22-30); CHLORIDE 103 mmol/L (98-107); GLUCOSE 166 mg/dL (75-110); POTASSIUM 5.6 mmol/L (3.6-5.0)
[2019-01-23] MEDS: CEPHALEXIN 500 MG CAPSULE PO SCH ×2 (15:33→21:36)
--- NOTE | 2019-01-23 15:56 | PDOC PROGRESS REPORT ---
Subjective Progress Note for:: 01/23/19 Subjective:: No adverse events overnight. No new complaints. Vital signs been stable. Eating and drinking without difficulty. No chest pain or shortness of breath. Got up and ambulated 170 feet with physical therapy yesterday. Reason For Visit: ERROL,DYSPNEA Physical Exam Vital Signs: Temp Pulse Resp BP Pulse Ox 98.5 F 82 16 124/60 95 01/23/19 11:10 01/23/19 13:35 01/23/19 13:35 01/23/19 11:10 01/23/19 13:35 Intake & Output 01/22/19 01/23/19 01/24/19 06:59 06:59 06:59 Intake Total 2740 980 360 Output Total 1075 Balance 1665 980 360 Weight 126 kg 126.3 kg General appearance: PRESENT: no acute distress, cooperative, disheveled, morbidly obese Respiratory exam: PRESENT: clear to auscultation vivek, symmetrical, unlabored. ABSENT: accessory muscle use, chest wall tenderness, crackles, prolonged expiratory phas, rhonchi, tachypnea, wheezes Cardiovascular exam: PRESENT: irregular rhythm Pulses: PRESENT: normal carotid pulses Vascular exam: PRESENT: normal capillary refill GI/Abdominal exam: PRESENT: normal bowel sounds, soft. ABSENT: distended, guarding, rebound, tenderness Extremities exam: ABSENT: clubbing, pedal edema Musculoskeletal exam: PRESENT: deformity, normal inspection Neurological exam: PRESENT: alert, awake, oriented to person, oriented to place, oriented to situation, other - Tremulous Psychiatric exam: PRESENT: appropriate affect, normal mood Skin exam: PRESENT: dry, warm Results Laboratory Results: 01/22/19 05:25 01/23/19 10:00 01/23/19 10:00 Sodium 136.3 L Potassium 5.6 H Chloride 103 Carbon Dioxide 22 Anion Gap 11 BUN 50 H Creatinine 2.07 H Est GFR ( Amer) 38 L Glucose 166 H Calcium 9.3 01/21/19 09:48 Clean Catch Midstream Urine Culture - Final Escherichia Coli 01/21/19 01/21/19 01/21/19 09:05 09:05 16:24 Creatine Kinase 156 CK-MB (CK-2) 1.16 Troponin I 0.015 0.013 Impressions: Cervical Spine CT 01/21/19 00:00 IMPRESSION: No acute findings Chest X-Ray 01/21/19 00:00 IMPRESSION: NO ACUTE RADIOGRAPHIC FINDING IN THE CHEST. Head CT 01/21/19 00:00 IMPRESSION: No acute findings EVIDENCE OF ACUTE STROKE: NO. Assessment and Plan - Diagnosis (1) Dyspnea Qualifiers: Dyspnea type: dyspnea on exertion Qualified Code(s): R06.09 - Other forms of dyspnea Is this a current diagnosis for this admission?: Yes Plan: Suspected to be due to his baseline level of weakness, his COPD, his general po or health, and his renal failure. His breathing feels better at rest. He was able to ambulate with a walker and standby assist for 170 feet, which is better than I thought he was going to do. (2) ERROL (acute kidney injury) Is this a current diagnosis for this admission?: Yes Plan: Creatinine continues to slowly improve. 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 I am making some adjustments to his medications because his potassium has been running on the high side, and if it is more reasonable tomorrow we will consider discharge home. (3) Diabetes mellitus type 2 in obese Is this a current diagnosis for this admission?: Yes Plan: Continue home regimen of NovoLog and Lantus. Sliding scale, diabetic diet, Accu-Cheks (4) Generalized weakness Is this a current diagnosis for this admission?: Yes Plan: Physical therapy has recommended home health PT - Time Time Spent with patient: 15-24 minutes
[2019-01-23] MEDS: INSULIN GLARGINE,HUM.REC.ANLOG 1,000 UNIT/10 ML VIAL SUBCUT SCH (21:31)
[2019-01-23] MEDS: GABAPENTIN 300 MG CAPSULE PO SCH (21:32)
[2019-01-23] MEDS: ATORVASTATIN CALCIUM 20 MG TABLET PO SCH (21:33)
[2019-01-23] MEDS: CITALOPRAM HYDROBROMIDE 20 MG TABLET PO SCH (21:33)
[2019-01-24] MEDS: LEVALBUTEROL HCL NEB 1.25 MG/3 ML AMPUL NEB SCH ×3 (07:45→19:59)
[2019-01-24] MEDS: INSULIN LISPRO 100 UNIT/ML 3 ML VIAL SUBCUT SCH ×6 (07:55→21:50)
[2019-01-24] MEDS: HYDROCHLOROTHIAZIDE 25 MG TABLET PO SCH (09:44)
[2019-01-24] MEDS: CHOLECALCIFEROL (D3) 1,000 UNIT (25 MCG) TABLET PO SCH (09:44)
[2019-01-24] MEDS: APIXABAN 5 MG TABLET PO SCH ×2 (09:44→21:55)
[2019-01-24] MEDS: FERROUS SULFATE 325 MG TABLET PO SCH (09:44)
[2019-01-24] MEDS: CYANOCOBALAMIN (VITAMIN B-12) 1,000 MCG TABLET PO SCH (09:44)
[2019-01-24] MEDS: CEPHALEXIN 500 MG CAPSULE PO SCH ×3 (09:45→21:55)
[2019-01-24] MEDS: FLUTICASONE NASAL SPRAY 50 MCG/SPRY 120 SPRAY/16 GM NAREB SCH (09:45)
[2019-01-24] MEDS: FLUTICASONE/UMECLIDIN/VILANTER 100-62.5-25 MCG/DOSE IH SCH (09:46)
[2019-01-24] MEDS: METOPROLOL SUCCINATE 25 MG TAB.SR.24H PO SCH (12:00)
[2019-01-24 15:57] LABS: ANION GAP 12 (5-19); BLOOD UREA NITROGEN 45 mg/dL (7-20); CALCIUM 9.1 mg/dL (8.4-10.2); CARBON DIOXIDE 21 mmol/L (22-30); CHLORIDE 102 mmol/L (98-107); GLUCOSE 100 mg/dL (75-110); POTASSIUM 4.4 mmol/L (3.6-5.0)
--- NOTE | 2019-01-24 17:00 | PDOC PROGRESS REPORT ---
Subjective Progress Note for:: 01/24/19 Subjective:: No adverse events overnight. No new complaints. Vital signs been stable. Eating and drinking without difficulty. No chest pain or shortness of breath. Said he overall feels pretty good Reason For Visit: ERROL,DYSPNEA Physical Exam Vital Signs: Temp Pulse Resp BP Pulse Ox 97.9 F 62 20 123/54 L 99 01/24/19 15:24 01/24/19 15:24 01/24/19 15:24 01/24/19 15:24 01/24/19 15:24 Intake & Output 01/23/19 01/24/19 01/25/19 06:59 06:59 06:59 Intake Total 980 1020 Balance 980 1020 Weight 126.3 kg 125.3 kg General appearance: PRESENT: no acute distress, cooperative, disheveled, morbidly obese Respiratory exam: PRESENT: clear to auscultation vivek, symmetrical, unlabored. ABSENT: accessory muscle use, chest wall tenderness, crackles, prolonged expiratory phas, rhonchi, tachypnea, wheezes Cardiovascular exam: PRESENT: irregular rhythm Pulses: PRESENT: normal carotid pulses Vascular exam: PRESENT: normal capillary refill GI/Abdominal exam: PRESENT: normal bowel sounds, soft. ABSENT: distended, guarding, rebound, tenderness Extremities exam: ABSENT: clubbing, pedal edema Musculoskeletal exam: PRESENT: deformity, normal inspection Neurological exam: PRESENT: alert, awake, oriented to person, oriented to place, oriented to situation, other - Tremulous Psychiatric exam: PRESENT: appropriate affect, normal mood Skin exam: PRESENT: dry, warm Results Laboratory Results: 01/22/19 05:25 01/24/19 15:26 01/24/19 15:26 Sodium 135.1 L Potassium 4.4 Chloride 102 Carbon Dioxide 21 L Anion Gap 12 BUN 45 H Creatinine 2.07 H Est GFR ( Amer) 38 L Glucose 100 Calcium 9.1 01/21/19 01/21/19 01/21/19 09:05 09:05 16:24 Creatine Kinase 156 CK-MB (CK-2) 1.16 Troponin I 0.015 0.013 Impressions: Cervical Spine CT 01/21/19 00:00 IMPRESSION: No acute findings Chest X-Ray 01/21/19 00:00 IMPRESSION: NO ACUTE RADIOGRAPHIC FINDING IN THE CHEST. Head CT 01/21/19 00:00 IMPRESSION: No acute findings EVIDENCE OF ACUTE STROKE: NO. Assessment and Plan - Diagnosis (1) Dyspnea Qualifiers: Dyspnea type: dyspnea on exertion Qualified Code(s): R06.09 - Other forms of dyspnea Is this a current diagnosis for this admission?: Yes Plan: Suspected to be due to his baseline level of weakness, his COPD, his general poor health, and his renal failure. His breathing feels better at rest. He was able to ambulate with a walker and standby assist for 170 feet, which is better than I thought he was going to do. (2) ERROL (acute kidney injury) Is this a current diagnosis for this admission?: Yes Plan: Creatinine seems to be stabilizing around 2. Check again in the morning. If it still there, I will discharge him home. It is likely his baseline. (3) Diabetes mellitus type 2 in obese Is this a current diagnosis for this admission?: Yes Plan: Continue home regimen of NovoLog and Lantus. Sliding scale, diabetic diet, Accu-Cheks (4) Generalized weakness Is this a current diagnosis for this admission?: Yes Plan: Anticipate discharge home tomorrow with home health. - Time Time Spent with patient: 15-24 minutes
[2019-01-24] MEDS: INSULIN GLARGINE,HUM.REC.ANLOG 1,000 UNIT/10 ML VIAL SUBCUT SCH (21:50)
[2019-01-24] MEDS: CITALOPRAM HYDROBROMIDE 20 MG TABLET PO SCH (21:55)
[2019-01-24] MEDS: GABAPENTIN 300 MG CAPSULE PO SCH (21:56)
[2019-01-24] MEDS: ATORVASTATIN CALCIUM 20 MG TABLET PO SCH (21:56)
[2019-01-25] MEDS: CEPHALEXIN 500 MG CAPSULE PO SCH ×2 (05:24→14:17)
[2019-01-25] MEDS: LEVALBUTEROL HCL NEB 1.25 MG/3 ML AMPUL NEB SCH ×2 (07:49→13:38)
[2019-01-25] MEDS: INSULIN LISPRO 100 UNIT/ML 3 ML VIAL SUBCUT SCH ×3 (08:00→14:17)
[2019-01-25] MEDS: FLUTICASONE NASAL SPRAY 50 MCG/SPRY 120 SPRAY/16 GM NAREB SCH (09:28)
[2019-01-25] MEDS: CHOLECALCIFEROL (D3) 1,000 UNIT (25 MCG) TABLET PO SCH (09:29)
[2019-01-25] MEDS: FERROUS SULFATE 325 MG TABLET PO SCH (09:29)
[2019-01-25] MEDS: HYDROCHLOROTHIAZIDE 25 MG TABLET PO SCH (09:29)
[2019-01-25] MEDS: CYANOCOBALAMIN (VITAMIN B-12) 1,000 MCG TABLET PO SCH (09:29)
[2019-01-25] MEDS: APIXABAN 5 MG TABLET PO SCH (09:29)
[2019-01-25] MEDS: METOPROLOL SUCCINATE 25 MG TAB.SR.24H PO SCH (09:29)
[2019-01-25] MEDS: FLUTICASONE/UMECLIDIN/VILANTER 100-62.5-25 MCG/DOSE IH SCH (09:30)
[2019-01-25 14:33] VITALS: BP 134/71
--- NOTE | 2019-01-25 19:29 | PDOC DISCHARGE SUMMARY ---
Impression - Admit/DC Date/PCP Admission Date/Primary Care Provider: 01/21/19 12:[facility] Discharge Date: 01/25/19 - Discharge Diagnosis (1) Dyspnea Is this a current diagnosis for this admission?: Yes (2) ERROL (acute kidney injury) Is this a current diagnosis for this admission?: Yes (3) Diabetes mellitus type 2 in obese Is this a current diagnosis for this admission?: Yes (4) Generalized weakness Is this a current diagnosis for this admission?: Yes - Additional Information Resuscitation Status: Full Code Discharge Diet: Cardiac, Diabetic Discharge Activity: Balance Activity w/Rest, Supervised Activity Referrals[facility] [Primary [facility]] - (PATIENT WILL MAKE OWN APPT.) Prescriptions: Cephalexin Monohydrate [Keflex 500 mg Capsule] 500 mg PO Q8 #15 capsule Home Medications: Budesonide/Formoterol Fumarate [Symbicort HFA 160-4.5 mcg Inhaler 6 gm] 2 puff IH Q12 03/27/16 Cholecalciferol (Vitamin D3) [Vitamin D3 1000 Unit Tablet] 1,000 unit PO DAILY 03/27/16 Cyanocobalamin (Vitamin B-12) [Vitamin B-12 1000 mcg Tablet] 1,000 mcg PO DAILY 03/27/16 Ferrous Sulfate 324 mg PO DAILY 03/27/16 Gabapentin [Neurontin] 600 mg PO DAILY 03/27/16 Lisinopril [Zestril] 40 mg PO DAILY 03/27/16 [place]-3 Fatty Acids/Fish Oil [Fish Oil 1,000 mg Capsule] 2,000 mg PO Q12 03/27/16 Apixaban [Eliquis 5 mg Tablet] 5 mg PO BID 01/21/19 Atorvastatin Calcium [Lipitor 10 mg Tablet] 10 mg PO QHS 01/21/19 Citalopram Hydrobromide [Citalopram HBr] 40 mg PO QHS 01/21/19 Fluticasone Propionate [Flonase Nasal Dousman 50 Mcg/[place]man 16 gm] 2 spray NAREB DAILY 01/21/19 Gabapentin [Neurontin 300 mg Capsule] 900 mg PO QHS 01/21/19 Insulin Aspart [Novolog] 32 unit SQ WBRKFST 01/21/19 Insulin Aspart [Novolog] 34 unit SQ WSUPPER 01/21/19 Insulin Glargine,Hum.rec.anlog [Lantus Insulin 100 Unit/1 ml 10 ml] 72 unit SUBCUT QHS 01/21/19 Metoprolol Succinate [Toprol Xl 25 mg Tab.sr] 25 mg PO DAILY 01/21/19 Tiotropium [place] Mark [Spiriva Handihaler 5 Cap/Kit (18 Mcg/Cap)] 1 cap IH DAILY 01/21/19 Cephalexin Monohydrate [Keflex 500 mg Capsule] 500 mg PO Q8 #15 capsule 01/25/19 History of Present Illiness History of Present Illness: BILLIE SWEENEY is a 73 year old male with history of COPD [sometimes uses home oxygen on exertion], CAD status post stents [04/2017], chronic tremors, atrial fibrillation, who presented to the hospital with his for evaluation of shortness of breath and fall. Patient has been experiencing increased sputum production on cough since yesterday accompanied by mild increase from baseline shortness of breath. Today when ambulating, noted that he had to hold on to the wall occasionally. Patient admits to some disequilibrium but denies any lightheadedness, vertigo or presyncopal state. Patient has also noted that he has been getting progressively weaker in the legs. Denies any focal weaknesses or paresthesias, dysarthria, dysphagia, weakness in upper extremities, nausea or vomiting, or chest pain. Also denies any increased weight gain or swelling in the extremities. Patient also notes that this morning he was leaning over to cloth picker something from the floor and fell over hitting his head on the wall. States his legs felt weak and that is why he tipped over. Hospital Course Hospital Course: He felt better after some IV fluids and some antibiotics. He is generally feeble and tremulous at baseline, and I think he just got weekend by dehydration and perhaps a urinary tract infection. We had physical therapy come to see him he was doing better, and he ambulated 170 feet with a walker. We did know what his baseline creatinine was, but he seemed to settle around 2, and he said he does have an appointment coming up with a tapper balance wheel screw hole for initial consultation. We set up home health physical therapy for him. He will finish a course of some antibiotics at home. His labs and examination were reassuring he was discharged in stable condition. Physical Exam Vital Signs: Temp Pulse Resp BP Pulse Ox 97.8 F 56 L 16 134/71 H 98 01/25/19 14:32 01/25/19 14:32 01/25/19 14:32 01/25/19 14:32 01/25/19 14:32 Intake & Output 01/24/19 01/25/19 01/26/19 06:59 06:59 06:59 Intake Total 1020 920 720 Balance 1020 920 720 Weight 125.3 kg 126.7 kg General appearance: PRESENT: no acute distress, cooperative, disheveled, morbidly obese Respiratory exam: PRESENT: clear to auscultation vivek, symmetrical, unlabored. ABSENT: accessory muscle use, chest wall tenderness, crackles, prolonged expiratory phas, rhonchi, tachypnea, wheezes Cardiovascular exam: PRESENT: irregular rhythm Pulses: PRESENT: normal carotid pulses Vascular exam: PRESENT: normal capillary refill GI/Abdominal exam: PRESENT: normal bowel sounds, soft. ABSENT: distended, guarding, rebound, tenderness Extremities exam: ABSENT: clubbing, pedal edema Musculoskeletal exam: PRESENT: deformity, normal inspection Neurological exam: PRESENT: alert, awake, oriented to person, oriented to place, oriented to situation, other - Tremulous Psychiatric exam: PRESENT: appropriate affect, normal mood Skin exam: PRESENT: dry, warm Results Laboratory Results: WBC 7.2 10^3/uL (4.0-10.5) 01/22/19 05:25 RBC 3.51 10^6/uL (4.35-5.55) L 01/22/19 05:25 Hgb 10.4 g/dL (13.5-17.0) L 01/22/19 05:25 Hct 30.8 % (37.9-51.0) L 01/22/19 05:25 MCV 88 fl (80-97) 01/22/19 05:25 MCH 29.5 pg (27.0-33.4) 01/22/19 05:25 MCHC 33.6 g/dL (32.0-36.0) 01/22/19 05:25 RDW 14.1 % (11.5-14.0) H 01/22/19 05:25 Plt Count 131 10^3/uL (150-450) L 01/22/19 05:25 Lymph % (Auto) 8.1 % (13-45) L 01/21/19 09:05 [place] % (Auto) 9.4 % (3-13) 01/21/19 09:05 Eos % (Auto) 0.1 % (0-6) 01/21/19 09:05 Baso % (Auto) 0.6 % (0-2) 01/21/19 09:05 Absolute Neuts (auto) 9.0 10^3/uL (1.7-8.2) H 01/21/19 09:05 Absolute Lymphs (auto) 0.9 10^3/uL (0.5-4.7) 01/21/19 09:05 Absolute Monos (auto) 1.0 10^3/uL (0.1-1.4) 01/21/19 09:05 Absolute Eos (auto) 0.0 10^3/uL (0.0-0.6) 01/21/19 09:05 Absolute Basos (auto) 0.1 10^3/uL (0.0-0.2) 01/21/19 09:05 Seg Neutrophils % 81.8 % (42-78) H 01/21/19 09:05 PT 19.5 SEC (11.4-15.4) H 01/21/19 09:05 INR 1.63 01/21/19 09:05 APTT 34.3 SEC (23.5-35.8) 01/21/19 09:05 VBG pH 7.34 (7.30-7.42) 01/21/19 09:12 VBG pCO2 35.6 mmHg (35-63) 01/21/19 09:12 VBG HCO3 18.9 mmol/L (20-32) L 01/21/19 09:12 VBG Base Excess -6.2 mmol/L 01/21/19 09:12 Sodium 135.1 mmol/L (137-145) L 01/24/19 15:26 Potassium 4.4 mmol/L (3.6-5.0) 01/24/19 15:26 Chloride 102 mmol/L (98-107) 01/24/19 15:26 Carbon Dioxide 21 mmol/L (22-30) L 01/24/19 15:26 Anion Gap 12 (5-19) 01/24/19 15:26 BUN 45 mg/dL (7-20) H 01/24/19 15:26 Creatinine 2.07 mg/dL (0.52-1.25) H 01/24/19 15:26 Est GFR ( Amer) 38 (>60) L 01/24/19 15:26 Est GFR (MDRD) Non-Af 32 (>60) L 01/24/19 15:26 Glucose 100 mg/dL (75-110) 01/24/19 15:26 POC Glucose 193 mg/dL (70-110) H 01/25/19 14:16 Lactic Acid 1.2 mmol/L (0.7-2.1) 01/21/19 11:02 Calcium 9.1 mg/dL (8.4-10.2) 01/24/19 15:26 Total Bilirubin 1.0 mg/dL (0.2-1.3) 01/21/19 09:05 Direct Bilirubin 0.2 mg/dL (0.0-0.4) 01/21/19 09:05 Neonat Total Bilirubin Not Reportable 01/21/19 09:05 Neonat Direct Bilirubin Not Reportable 01/21/19 09:05 Neonat Indirect Bili Not Reportable 01/21/19 09:05 AST 20 U/L (17-59) 01/21/19 09:05 ALT 18 U/L (<50) 01/21/19 09:05 Alkaline Phosphatase 70 U/L (38-126) 01/21/19 09:05 Creatine Kinase 156 U/L (55-170) 01/21/19 09:05 CK-MB (CK-2) 1.16 ng/mL (<4.55) 01/21/19 09:05 Troponin I 0.013 ng/mL 01/21/19 16:24 Total Protein 7.1 g/dL (6.3-8.2) 01/21/19 09:05 Albumin 4.0 g/dL (3.5-5.0) 01/21/19 09:05 Urine Color YELLOW 01/21/19 09:48 Urine Appearance CLOUDY 01/21/19 09:48 Urine pH 5.0 (5.0-9.0) 01/21/19 09:48 Ur Specific [place] 1.015 01/21/19 09:48 Urine Protein NEGATIVE mg/dL (NEGATIVE) 01/21/19 09:48 Urine Glucose (UA) NEGATIVE mg/dL (NEGATIVE) 01/21/19 09:48 Urine Ketones NEGATIVE mg/dL (NEGATIVE) 01/21/19 09:48 Urine Blood LARGE (NEGATIVE) H 01/21/19 09:48 Urine Nitrite NEGATIVE (NEGATIVE) 01/21/19 09:48 Urine Bilirubin NEGATIVE (NEGATIVE) 01/21/19 09:48 Urine Urobilinogen NEGATIVE mg/dL (<2.0) 01/21/19 09:48 Ur Leukocyte Esterase LARGE (NEGATIVE) H 01/21/19 09:48 Urine WBC (Auto) 91 /HPF 01/21/19 09:48 Urine RBC (Auto) 46 /HPF 01/21/19 09:48 Urine Bacteria (Auto) 3+ /HPF 01/21/19 09:48 Urine WBC Clumps FEW /HPF 01/21/19 09:48 Squamous Epi Cells Auto 1 /HPF 01/21/19 09:48 Urine Mucus (Auto) OCC /LPF 01/21/19 09:48 Urine Ascorbic Acid NEGATIVE (NEGATIVE) 01/21/19 09:48 01/21/19 01/21/19 09:05 16:24 CK-MB (CK-2) 1.16 Troponin I 0.015 0.013 Impressions: Cervical Spine CT 01/21/19 00:00 IMPRESSION: No acute findings Chest X-Ray 01/21/19 00:00 IMPRESSION: NO ACUTE RADIOGRAPHIC FINDING IN THE CHEST. Head CT 01/21/19 00:00 IMPRESSION: No acute findings EVIDENCE OF ACUTE STROKE: NO. Plan Time Spent: Greater than 30 Minutes Stroke Is this a Stroke Patient?: No Acute Heart Failure - Is this a Heart Failure Patient?: No
== END 2019-01-25 14:50 | disposition home or self-care (01) ==
LOC: ER 07:53 → EH 12:41 → 5 14:13
PROVIDERS: ADMIT Internal Medicine; ATTEND Internal Medicine
DX: R06.09 Other forms of dyspnea (principal); N17.9 Acute kidney failure, unspecified; E11.9 Type 2 diabetes mellitus without complications; E66.01 Morbid (severe) obesity due to excess calories; R53.1 Weakness; I25.10 Atherosclerotic heart disease of native coronary artery without angina pectoris; I48.91 Unspecified atrial fibrillation; R25.1 Tremor, unspecified; R26.81 Unsteadiness on feet; R05 Cough; J44.1 Chronic obstructive pulmonary disease with (acute) exacerbation; G47.33 Obstructive sleep apnea (adult) (pediatric); R82.71 Bacteriuria; R50.9 Fever, unspecified; R29.6 Repeated falls; R79.89 Other specified abnormal findings of blood chemistry; Z95.5 Presence of coronary angioplasty implant and graft; Z04.3 Encounter for examination and observation following other accident; Z87.891 Personal history of nicotine dependence; Z90.79 Acquired absence of other genital organ(s); Z85.46 Personal history of malignant neoplasm of prostate; Z79.899 Other long term (current) drug therapy; Z79.82 Long term (current) use of aspirin; Z79.02 Long term (current) use of antithrombotics/antiplatelets; Z99.81 Dependence on supplemental oxygen; Z79.4 Long term (current) use of insulin
CPT/HCPCS: 93005; 94640 ×6; 99285; 96374; 36415 ×4; 87040; 87086; 82553; 82962 ×5; 82550; 83605; 85025; 85027; 85610; 85730; 87088; 80048 ×3; 80053; 81001; 84484; 87186; 82803; 71045; 70450; 72125; 93010; 97116; 97162; 97535; 97165; G0378 ×6; A9270 ×51; J2920; J0696; J3490 ×10; J7030; J1815; J7620

== ENCOUNTER 2019-02-21 10:53 | Day surgery (SDC) | payer MEDICARE, OTHER ==
[2019-02-21] MEDS ORDERED: PROPOFOL INJ 200 MG/20 ML VIAL IV ONE (12:48)
[2019-02-21] MEDS ORDERED: ONDANSETRON HCL INJ/PF 4 MG/2 ML SDV ONE (14:22)
[2019-02-21] MEDS ORDERED: SIMETHICONE 80 MG TAB.CHEW ONE (14:51)
--- NOTE | 2019-02-21 15:24 | Operative Report ---
Operative Report DATE OF SURGERY: 02/21/19 Operative Report: The risks, benefits and alternatives of the procedure including the risk of bleeding, perforation requiring surgery have been explained to the patient in detail and informed consent has been obtained. Patient is taken back to the operating room and placed in the left, lateral decubital position. Timeout was called. Propofol medication is administered. Rectal examination is done which did not reveal any masses, tears or fissures. An Olympus videoscope was introduced into the patient's rectum. Scope was then carefully advanced all the way to the cecum. Cecum was identified by the usual anatomical landmarks including the ileocecal valve as well as the appendiceal office. Photodocumentation is obtained. Scope was then sequentially pulled back via the various segments of the colon including the ascending colon, hepatic flexure, transverse colon, splenic flexure, descending colon and finally in to the rectosigmoid portions of the colon. Retroflexion maneuvers performed. The risks benefits and alternatives of the procedure explained to the patient in detail and informed consent is obtained.A GIF Olympus video scope was inserted into the patient's mouth and hypopharynx ,the esophagus is identified intubated and insufflated, the scope was then advanced through the esophagus stomach and duodenum, retroflexion maneuver is done the esophagus stomach and first and second portions of the duodenum examined. PREOPERATIVE DIAGNOSIS: Blood in stool POSTOPERATIVE DIAGNOSIS: 2 cecal polyps that were removed via snare polypectomy and retrieved. An Endo Clip was placed at the base of 1 of the cecal polyps because it was prematurely decapitated. There is Desiree ink injection marking the site of the lipoma. The lipoma is confirmed with a soft pillow test. There is a transverse colon polyp that was removed via snare polypectomy and retrieved. There is a rectal polyp that was removed via snare polypectomy and retrieved. Diverticulosis without any evidence of diverticulitis. Internal h emorrhoids. Gastritis status post biopsy rule out Helicobacter pylori. Duodenitis. Hiatal hernia OPERATION: Colonoscopy with snare polypectomy. EGD with biopsy SURGEON: LOKI TRACY ANESTHESIA: LMAC TISSUE REMOVED OR ALTERED: As noted above. COMPLICATIONS: None. ESTIMATED BLOOD LOSS: None. INTRAOPERATIVE FINDINGS: As noted above. PROCEDURE: Patient tolerated the procedure well. No immediate postprocedure complications are noted. Patient is discharged in good condition. Discharge date 02/21/2019. Discharge diet: Regular. Discharge activity: Regular. 2 to 3 weeks follow-up to discuss findings. Likely will need colonoscopy 1 year from now. Wait on the pathology.
[2019-02-21 15:44] VITALS: BP 154/76
== END 2019-02-21 15:25 | disposition home or self-care (01) ==
LOC: END 10:53
PROVIDERS: ATTEND Internal Medicine Gastroenterology
DX: D12.0 Benign neoplasm of cecum (principal); K64.8 Other hemorrhoids; K29.50 Unspecified chronic gastritis without bleeding; K44.9 Diaphragmatic hernia without obstruction or gangrene; K29.80 Duodenitis without bleeding; D12.3 Benign neoplasm of transverse colon; D12.8 Benign neoplasm of rectum; K92.1 Melena; J44.9 Chronic obstructive pulmonary disease, unspecified; I10 Essential (primary) hypertension; E11.9 Type 2 diabetes mellitus without complications; Z79.01 Long term (current) use of anticoagulants; D64.9 Anemia, unspecified; G47.33 Obstructive sleep apnea (adult) (pediatric); D17.5 Benign lipomatous neoplasm of intra-abdominal organs
CPT/HCPCS: 43239; 45380; 45385; 82962; 88342 ×2; 88305 ×2; 00813; A9270; J2405; J2704; 813